=== PATIENT | male | born 1975 | race Caucasian/White ===

== ENCOUNTER 2017-12-15 10:24 | Inpatient (IN) | payer MEDICAID ==
[2017-12-15] MEDS: SOD CHLORIDE 0.9% 500 ML IV (11:44)
[2017-12-15] MEDS: ONDANSETRON 4 MG INJ IV (11:44)
[2017-12-15] MEDS: morphine 4 MG/ML VIAL IV (11:45)
[2017-12-15 12:08] LABS: ADD MAN DIFF? NO
[2017-12-15 12:17] LABS: BASOPHILS % 0.2 % (0.0-2.0); HEMATOCRIT 44.6 % (42.0-52.0); HEMOGLOBIN 15.4 g/dl (14.0-18.0); LYMPHOCYTES # 0.9 10^3/ul (0.8-2.9); LYMPHOCYTES % 5.8 % (15.0-51.0); MEAN CORPUSCULAR HEMOGLOBIN 30.4 pg (29.0-33.0); MEAN CORPUSCULAR HGB CONC 34.5 g/dl (32.0-37.0); MEAN PLATELET VOLUME 10.6 fl (7.4-10.4); MONOCYTE # 0.6 10^3/ul (0.3-0.9); MONOCYTES % 3.8 % (0.0-11.0); NEUTROPHILS % 89.8 % (39.0-77.0); PLATELET COUNT 182 10^3/UL (140-415); RED BLOOD COUNT 5.07 10^6/ul (4.70-6.10); RED CELL DISTRIBUTION WIDTH 12.6 % (11.5-14.5)
[2017-12-15 12:17] LABS: WHITE BLOOD COUNT 15.6 10^3/ul (4.8-10.8)
[2017-12-15 12:34] LABS: ALANINE AMINOTRANSFERASE 41 IU/L (13-69); ALBUMIN 4.1 g/dl (3.3-4.9); ALBUMIN/GLOBULIN RATIO 1.32; ALKALINE PHOSPHATASE 94 IU/L (42-121); ANION GAP 15 (8-16); ASPARTATE AMINO TRANSFERASE 29 IU/L (15-46); BILIRUBIN,INDIRECT 0.8 mg/dl (0-1.1); BILIRUBIN,TOTAL 0.8 mg/dl (0.2-1.3); BLOOD UREA NITROGEN 20 mg/dl (7-20); CALCIUM 8.9 mg/dl (8.4-10.2); CARBON DIOXIDE 25 mmol/L (21-31); CHLORIDE 104 mmol/L (97-110); CREATININE 0.54 mg/dl (0.61-1.24); GLUCOSE 176 mg/dl (70-220); LIPASE 56 U/L (23-300); POTASSIUM 3.6 mmol/L (3.5-5.1); SODIUM 140 mmol/L (135-144); TOTAL PROTEIN 7.2 g/dl (6.1-8.1)
[2017-12-15] MEDS: PIPER-TAZO 3.375 GM IV (PMX) 100 ML IVPB (13:15)
[2017-12-15 13:24] LABS: ADD UMIC NO; UR ASCORBIC ACID NEGATIVE (NEGATIVE); UR BILIRUBIN (Dip) NEGATIVE (NEGATIVE); UR BLOOD (Dip) NEGATIVE (NEGATIVE); UR CLARITY CLEAR (CLEAR); UR COLOR YELLOW (YELLOW); UR GLUCOSE (Dip) 1+ mg/dL (NEGATIVE); UR KETONES (Dip) TRACE mg/dL (NEGATIVE); UR LEUKOCYTE ESTERASE (Dip) NEGATIVE Leu/ul (NEGATIVE); UR NITRITE (Dip) NEGATIVE (NEGATIVE); UR SPECIFIC GRAVITY (Dip) 1.019 (1.003-1.030); UR TOTAL PROTEIN (Dip) NEGATIVE (NEGATIVE); UR UROBILINOGEN (Dip) NEGATIVE (NEGATIVE)
[2017-12-15 14:06] LABS: INR 0.98; PROTIME 13.1 Sec (11.9-14.9)
[2017-12-15] MEDS ORDERED: ACETAMINOPHEN 325 MG TAB PO (14:30)
[2017-12-15] MEDS ORDERED: ONDANSETRON 4 MG INJ IV ×3 (14:30→16:30)
[2017-12-15] MEDS ORDERED: NACL 0.9% 3 ML SYG IV (15:00)
[2017-12-15] MEDS ORDERED: morphine 2 MG INJ IV (15:00)
[2017-12-15] MEDS: HYDROmorphONE 0.5 MG/0.5 ML SYG IV (16:20)
[2017-12-15] MEDS ORDERED: DIPHENHYDRAMINE 50 MG INJ IV (16:30)
[2017-12-15] MEDS ORDERED: EPHEDrine SULFATE 50 MG/5 ML SYG IV (16:30)
[2017-12-15] MEDS ORDERED: hydrALAzine 20 MG INJ IV (16:30)
[2017-12-15] MEDS ORDERED: LABETALOL HCL 20MG INJ IV (16:30)
[2017-12-15] MEDS ORDERED: MEPERIDINE 25 MG INJ IV (16:30)
[2017-12-15] MEDS ORDERED: FENTAnyl 50 MCG/ML VIAL IV ×3 (16:30)
[2017-12-15] MEDS ORDERED: HYDROmorphONE 1 MG/5 ML IV SYRINGE IV ×3 (16:30)
[2017-12-15] MEDS ORDERED: METOCLOPRAMIDE 10 MG INJ IV (16:30)
[2017-12-15] MEDS ORDERED: ROCURONIUM 50 MG INJ (17:12)
[2017-12-15] MEDS ORDERED: PROPOFOL 20 ML (17:12)
[2017-12-15] MEDS ORDERED: MIDAZOLAM 1 MG/ML 2 ML INJ (17:12)
[2017-12-15] MEDS ORDERED: CEFAZOLIN 1 GM INJ (17:12)
[2017-12-15] MEDS ORDERED: FENTAnyl 50 MCG/ML VIAL ×2 (17:13)
[2017-12-15] MEDS ORDERED: ROPIVACAINE 0.5 % 30 ML VIAL (17:13)
[2017-12-15] MEDS: SOD CHLORIDE 0.9% 1,000 ML IV ×2 (17:16→23:54)
[2017-12-15] MEDS ORDERED: KETOROLAC 30 MG INJ (18:36)
[2017-12-15] MEDS ORDERED: DEXAMETHASONE 4 MG/ML 1 ML INJ (18:36)
[2017-12-15] MEDS ORDERED: METOCLOPRAMIDE 10 MG INJ (18:36)
[2017-12-15] MEDS ORDERED: ONDANSETRON 4 MG INJ (18:36)
[2017-12-15] MEDS ORDERED: GLYCOPYRROLATE 0.4 MG INJ (18:36)
[2017-12-15] MEDS ORDERED: NEOSTIGMINE 3 MG/3 ML SYRINGE (18:36)
[2017-12-16 05:44] LABS: ADD MAN DIFF? NO
[2017-12-16 05:52] LABS: BASOPHILS % 0.1 % (0.0-2.0); HEMOGLOBIN 13.3 g/dl (14.0-18.0); LYMPHOCYTES # 1.4 10^3/ul (0.8-2.9); LYMPHOCYTES % 9.7 % (15.0-51.0); MEAN CORPUSCULAR HEMOGLOBIN 29.7 pg (29.0-33.0); MEAN CORPUSCULAR HGB CONC 33.3 g/dl (32.0-37.0); MEAN CORPUSCULAR VOLUME 89.3 fl (82.0-101.0); MEAN PLATELET VOLUME 10.7 fl (7.4-10.4); MONOCYTE # 0.7 10^3/ul (0.3-0.9); MONOCYTES % 4.6 % (0.0-11.0); NEUTROPHIL # 12.2 10^3/ul (1.6-7.5); PLATELET COUNT 170 10^3/UL (140-415); RED BLOOD COUNT 4.48 10^6/ul (4.70-6.10); RED CELL DISTRIBUTION WIDTH 13.1 % (11.5-14.5)
[2017-12-16 05:52] LABS: WHITE BLOOD COUNT 14.4 10^3/ul (4.8-10.8)
[2017-12-16 06:15] LABS: HEMOGLOBIN A1C 5.9 % (0-5.9)
[2017-12-16 06:49] LABS: ALANINE AMINOTRANSFERASE 31 IU/L (13-69); ALBUMIN 3.3 g/dl (3.3-4.9); ALBUMIN/GLOBULIN RATIO 1.06; ALKALINE PHOSPHATASE 62 IU/L (42-121); ANION GAP 11 (8-16); ASPARTATE AMINO TRANSFERASE 20 IU/L (15-46); BILIRUBIN,INDIRECT 0.6 mg/dl (0-1.1); BILIRUBIN,TOTAL 0.6 mg/dl (0.2-1.3); BLOOD UREA NITROGEN 12 mg/dl (7-20); CALCIUM 8.2 mg/dl (8.4-10.2); CARBON DIOXIDE 27 mmol/L (21-31); CHLORIDE 104 mmol/L (97-110); CREATININE 0.57 mg/dl (0.61-1.24); GLUCOSE 167 mg/dl (70-220); PHOSPHORUS 3.2 mg/dl (2.5-4.9); POTASSIUM 4.1 mmol/L (3.5-5.1); SODIUM 138 mmol/L (135-144); TOTAL PROTEIN 6.4 g/dl (6.1-8.1)
== END 2017-12-16 13:10 | disposition home or self-care (01) | DRG 343 ==
LOC: FTE 10:24 → MS3 14:04 → MS1 21:45
PROC: 0DTJ4ZZ Resection of Appendix, Percutaneous Endoscopic Approach (ICD-10-PCS; principal; 2017-12-15 17:58)
DX: K35.80 Unspecified acute appendicitis (principal)
CPT/HCPCS: 36415; 71045; 74176; 76705; 80053; 81003; 83036; 83690; 83735; 84100; 85025; 85610; 85730; 88304; 93005; 96361; 96365; 96375; 99285-25

== ENCOUNTER 2017-12-31 06:01 | Emergency (ER) | payer MEDICAID ==
[2017-12-31 06:59] LABS: ADD MAN DIFF? NO
[2017-12-31 07:11] LABS: WHITE BLOOD COUNT 14.9 10^3/ul (4.8-10.8)
[2017-12-31 07:11] LABS: BASOPHILS % 0.3 % (0.0-2.0); EOSINOPHILS % 0.1 % (0.0-7.0); HEMATOCRIT 48.4 % (42.0-52.0); HEMOGLOBIN 16.1 g/dl (14.0-18.0); LYMPHOCYTES # 2.8 10^3/ul (0.8-2.9); LYMPHOCYTES % 18.7 % (15.0-51.0); MEAN CORPUSCULAR HEMOGLOBIN 29.4 pg (29.0-33.0); MEAN CORPUSCULAR HGB CONC 33.3 g/dl (32.0-37.0); MEAN CORPUSCULAR VOLUME 88.5 fl (82.0-101.0); MEAN PLATELET VOLUME 9.8 fl (7.4-10.4); MONOCYTE # 0.9 10^3/ul (0.3-0.9); MONOCYTES % 6.1 % (0.0-11.0); NEUTROPHIL # 11.1 10^3/ul (1.6-7.5); NEUTROPHILS % 74.3 % (39.0-77.0); PLATELET COUNT 201 10^3/UL (140-415); RED BLOOD COUNT 5.47 10^6/ul (4.70-6.10); RED CELL DISTRIBUTION WIDTH 12.2 % (11.5-14.5)
[2017-12-31 07:24] LABS: ADD UMIC YES; UR ASCORBIC ACID NEGATIVE (NEGATIVE); UR BILIRUBIN (Dip) NEGATIVE (NEGATIVE); UR BLOOD (Dip) 3+ mg/dL (NEGATIVE); UR CLARITY CLEAR (CLEAR); UR COLOR STRAW (YELLOW); UR GLUCOSE (Dip) NEGATIVE (NEGATIVE); UR KETONES (Dip) NEGATIVE (NEGATIVE); UR LEUKOCYTE ESTERASE (Dip) 3+ Leu/ul (NEGATIVE); UR NITRITE (Dip) NEGATIVE (NEGATIVE); UR RBC 103 /HPF (0-5); UR SPECIFIC GRAVITY (Dip) 1.006 (1.003-1.030); UR TOTAL PROTEIN (Dip) NEGATIVE (NEGATIVE); UR UROBILINOGEN (Dip) NEGATIVE (NEGATIVE); UR WBC 95 /HPF (0-5)
[2017-12-31 07:28] LABS: ALANINE AMINOTRANSFERASE 47 IU/L (13-69); ALBUMIN 4.5 g/dl (3.3-4.9); ALBUMIN/GLOBULIN RATIO 1.12; ALKALINE PHOSPHATASE 98 IU/L (42-121); ANION GAP 13 (8-16); ASPARTATE AMINO TRANSFERASE 37 IU/L (15-46); BILIRUBIN,INDIRECT 0.7 mg/dl (0-1.1); BILIRUBIN,TOTAL 0.7 mg/dl (0.2-1.3); BLOOD UREA NITROGEN 13 mg/dl (7-20); CALCIUM 9.5 mg/dl (8.4-10.2); CARBON DIOXIDE 32 mmol/L (21-31); CHLORIDE 98 mmol/L (97-110); CREATININE 0.78 mg/dl (0.61-1.24); GLUCOSE 117 mg/dl (70-220); LIPASE 50 U/L (23-300); SODIUM 139 mmol/L (135-144); TOTAL PROTEIN 8.5 g/dl (6.1-8.1)
[2017-12-31] MEDS ORDERED: SOD CHLORIDE 0.9% 100 ML (07:47)
[2017-12-31] MEDS ORDERED: IOHEXOL 300MG/ML 150 ML BTL (07:47)
[2017-12-31] MEDS: CEFTRIAXONE 1 GM INJ IM (08:38)
[2017-12-31] MEDS: LIDOCAINE 1% (MDV) 20 ML INJ SC (08:39)
[2017-12-31] MEDS: LIDOCAINE 1% (MPF) 30 ML INJ INJ (08:40)
== END 2017-12-31 09:18 | disposition home or self-care (01) ==
LOC: FTE 06:01
DX: N39.0 Urinary tract infection, site not specified (principal)
CPT/HCPCS: 36415; 74177; 80053; 81001; 83690; 85025; 96372; 99285-25